=== PATIENT | female | born 1945 | race Caucasian/White ===

== ENCOUNTER 2024-04-11 13:27 | Inpatient (IN) | payer OTHER ==
[2024-04-28 10:05] VITALS: BMI 32.1
[2024-04-28] MEDS ORDERED: CARBOXYMETHYLCELLULOSE SODIUM 0.5% 15 ML OPTH PRN (11:02)
[2024-04-28] MEDS ORDERED: CALCIUM CARBONATE CHEW 500MG TAB PO PRN (11:07)
[2024-04-28] MEDS: INSULIN REGULAR (HUMAN) 100 UNIT/ML SQ SCH (13:50)
[2024-04-28] MEDS: CARBOXYMETHYLCELLULOSE SODIUM 0.5% 15 ML OPTH SCH (14:00)
--- NOTE | 2024-04-28 16:25 | RAD REPORT ---
EXAM: CT Head Brain Wo Cont HISTORY: hx of subdural hemmorhage COMPARISON: None TECHNIQUE: Multiple contiguous axial images were obtained for a CT of the brain without contrast. Sag ittal and coronal reformats were performed. One or more of the following dose reduction techniques were used: Automated exposure control, adjus tment of the mA and kV according to patient size, and iterative reconstruction. Unless otherwise specified, incidental findings do not require dedicated imaging follow-up. FINDINGS: Lobulated parenchymal hemorrhage in the left parietal subcortical and deep white matter, extending to wards the subependymal region, measuring 1.8 x 1.7 x 1.9 cm in greatest transverse, AP, and CC dimensions. Mild adjacent vasogenic edema pattern and mild mass effect upon the adjacent sulci. Symmetric radiodensities along the temporal horns of the lateral ventricles, favored to represent min eralization of elements of the choroid plexus rather than intraventricular hemorrhage. No evidence of hydrocephalus, posterior fossa hemorrhage, or extra-axial fluid collection. Mild brain atrophy with mild periventricular and deep white matter chronic microvascular ischemic ch anges present. The calvarium is intact. The visualized paranasal sinuses and mastoid air cells are essentially clear . IMPRESSION: Left parietal lobe parenchymal hematoma as above, given its peripheral location, could represent hemo rrhage within a cavernoma or other vascular malformation, or a lobar hemorrhage in the setting of chronic amyloid angiopathy. Mild adjacent edema mass effect. THIS REPORT CONTAINS FINDINGS THAT MAY BE CRITICAL TO PATIENT CARE. The findings were verbally commun icated via telephone to Jorge Pedro MD on 04/28/2024 4:09 PM.
[2024-04-28] MEDS: carvediloL 25 MG TAB PO SCH (17:21)
[2024-04-28] MEDS ORDERED: carvediloL 25 MG TAB PO SCH (18:00)
[2024-04-28] MEDS: MONTELUKAST 10 MG TAB PO SCH (19:47)
[2024-04-28] MEDS: POTASSIUM CL SA 10 MEQ TAB PO SCH (19:47)
[2024-04-28] MEDS: ATORVASTATIN 40 MG TAB PO SCH (19:47)
[2024-04-28] MEDS: APIXABAN 2.5 MG TABLET PO SCH (19:47)
[2024-04-28] MEDS: ACETAMINOPHEN 500 MG TAB PO PRN (19:49)
[2024-04-28] MEDS ORDERED: APIXABAN 5 MG TABLET PO SCH (20:00)
--- NOTE | 2024-04-28 20:26 | HP ---
Date of Admission: 04/28/2024 Chief Complaint: She has Velasco's palsy involving the right face, but there is also subdural hematoma. History Of Present Illness: Ms. Haines is an 78-year-old patient with atrial fibrillation, on Coumad in, coronary artery disease, along with aspirin. She presented to emergency department on 04/04/2024 with right facial droop, dizziness, headache that started approximately 5 days prior to admission. Her evaluation including head CT scan showed posterior fossa spontaneous hemorrhage. She denies any trauma. It involved the prepontine and premedullary cisterns. She was also in addition to the facia l droop, dysarthria, dysphagia, and some difficulty with liquid draining from the right corner of her mouth and loss of hearing in the right ear. 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 She had hypokale pedro, COPD, bilateral pleural effusions, pulmonary edema, hypertension, of course atrial fibrillation, and coronary artery disease. She was evaluated by the Neurosurgery Service and found to not require any surgical intervention. She was treated with Lasix and had kidney function monitored. She recei gloria steroids. She is unclear if she received acyclovir or valacyclovir. She was placed on telemetry and oxygen for CPAP at night. She had hospital course complicated by decreased hemoglobin and hemat ocrit, elevated blood sugars, creatinine, abnormal parameters including blood pressure. She was eval uated by the Physical, Occupational, and Speech Therapy Service and found to be functioning significa ntly below her baseline level of functioning and she was at that point, plan to transfer back to her home town, she was out of town and to a swing bed where she will be closer to family and expected to be there for about 2 weeks. She however did not thrive. She had multiple episodes of loss of balanc e when trying to ambulate with a single prong cane and requires significant continued help to reduce the risk of aspiration. Furthermore, she requires interval evaluation of the brain to evaluate if th ere is worsening or improvement of the subdural hematoma. She had difficulty also performing ordinar y activities of daily living. As a result of this worsening condition, she was determined to be an a ppropriate candidate for inpatient rehabilitation to have her comorbid conditions managed while she r eceives aggressive therapy to help her return towards her prior level of functioning. Inpatient reha bilitation is necessary as if she is not admitted, she would likely worsen and have rehospitalization in acute care. Past Medical History: As noted. Allergies: NO KNOWN DRUG ALLERGIES. Current Medications: Tylenol 500 mg every 6 hours as needed, Cordarone 200 mg daily, Eliquis 5 mg tw ice daily. She is still on Artificial Tears 1 drop in each eye 3 times daily, atorvastatin 40 mg at bedtime, Coreg 12.5 mg twice daily, Lasix 40 mg daily. She has Imdur 30 mg daily, Synthroid 0.075 mg daily, melatonin 3 mg at bedtime, Singulair 10 mg daily, K-Batool that is potassium 20 mEq twice daily, Aldactone 50 mg daily. Laboratory Studies: Blood glucose currently 96. White blood cell count 4.9, hemoglobin 10, hematocr it 32.7, platelets 209. Sodium 140, potassium 4.5, BUN 32, creatinine 1.86, calcium 11.0. Review of Systems: She reports mild myalgias and arthralgias. There is of course the right nasolabial fold drooping. S he has liquids draining in the right corner of the mouth. She says she has lost hearing in the right ear which is impacted. Otherwise, arms and legs are strong and symmetric. No significant asymmetry in terms of sensation as well. Current Level Of Functioning: Currently, she is at modified independence for eating. She does requi re observation and small sips and small amounts of food to attempt to reduce risk of aspiration. Dariel oming at supervision, bathing supervision, upper body dressing supervision, lower body dressing super vision. For toileting, wheelchair transfer, tub and shower transfer, supervision to moderate assista nce required. She ambulated 8 feet with moderate assistance. Physical Examination: Vital Signs: Blood pressure 119/56, pulse 60, respiratory rate 18, temperature 97.8, oxygen saturati on 94%. Weight 192 pounds. Height 5 feet 5 inches. BMI 32. General: Again, Ms. Haines is sitting in a chair beside bed. HEENT: She appears normocephalic. Neuro: She is just ambulating around the unit. She does have the decrease in the right nasolabial f old, no significant excursions on smiling and the forehead shows little movement in the right forehea d compared to the left and the right eye is unable to close due to the weakness of cranial nerve 7. Intact sensation. Otherwise in terms of cranial nerves, no other deficits except for decreased heari ng in the right ear. Her motor examination, she has good strength, symmetric, at least 4/5 proximall y and distally. Stocking-glove to light touch, temperature loss in the legs and arms. Reflexes depr essed, but symmetric. Rehab And Medical Assessment And Plan: Ms. Haines is an 78-year-old patient admitted to the [facility] rehabilitation unit with impairment category 01 stroke. Her impairment group code is 01.2, right b fritz involvement and left brain. Her etiologic diagnosis, prepontine and premedullary hemorrhage. No te, she is also experiencing decreased mobility, decreased physical functioning. She has hypothyroid ism, atrial fibrillation, recent BOWL TOPPER bleed of course, and insomnia. She had a head CT scan on arrival. The comparison was not available. The study identified a left pa rietal lobe parenchymal hematoma. Of note, it could represent a hemorrhage within the cavernoma or v ascular malformations or lobar hemorrhage in the setting of chronic amyloid angiopathy. Her lobulate d parenchymal hemorrhage in the left parietal subcortical and deep white matter area measured 1.8 x 1 .7 x 1.9 cm in greatest transverse anterior-posterior and craniocaudal dimensions. In terms of her continued plan as noted, she will have physical, occupational, and speech therapy. S he will continue with all medications as noted. Precautions adhered to for a fall as she has a recen t BOWL TOPPER bleed and therefore is at high risk of any worsening, especially on the Eliquis for DVT prophyl axis and fall precautions again adhered to at all times. Comorbidities That Are Impacting Rehabilitation: As noted, she has atrial fibrillation, is on Eliqui s and she has recent intraparenchymal bleed. The prior CT scan will be obtained to do a comparison t o see what has changed. She will also have interval scans done to help rule out any worsening hemorr kayden. Rehab Specific Plan: Ms. Haines will have physical, occupational, and speech therapy 3.5 hours, 5 of 7 days, to improve her ability to transfer from bed to chair, to toilet, to shower, to mobilize a wh eelchair, to ambulate with and without assistive device, is able to go up and down 10 steps with bila teral handrails, to perform all activities of daily living and to perform her cognitive functioning i n addition to working on her swallowing and to help with reduce the risk of drying of the right eyes, she will have Artificial Tears placed at least 3 to 4 times daily and may use a cover ove r the right eye, especially when asleep at night. Ms. Haines has a good understanding of the process of admission to inpatient rehabilitation unit and how she will benefit from physical, occupational, and speech therapy. She will have 24 hours a day, 7 days a week, skilled rehabilitation and nursing, daily physician evaluation and management, and soc ial services evaluation and management for discharge planning, home equipment, and to continue therap y. If need be, additional help will be sought from the Hospitalist Service. Barriers To Discharge: Currently, her big risk is more bleeds and she may end up requiring a higher level of care if there is worsening intercerebral parenchymal hemorrhage, so interval CT scan will be done to evaluate for that. Length Of Stay: About 10 days. Disposition: Expected to be home with family and to continue therapy potentially via outpatient ther apy depending how she is doing. Prognosis: Good despite complete. Code Status: Full code. Rehab Specific Goals: 1. Ms. Haines will be able to ambulate 250 feet with a rolling walker and mobilize a wheelchair 250 f eet and go up and down 10 steps with bilateral handrails. 2. She is expected independently to be able to do upper and lower body dressing, donning and doffing footwear. 3. She is independently expected to be able to perform all activities of daily living independently. 4. She can perform her cognitive functioning independently. The above goals were reviewed with Ms. Haines and she is in agreement. By signing this document, I acknowledge I personally performed a full physical examination on Ms. Darby cifuentes not later than 24 hours after her admission to the inpatient rehabilitation unit and determined t hat she is able to tolerate the above course of treatment at an intensive level for reasonable period of time. A detailed individualized plan of care for her will be completed by hospital day 4 based on the preadmission screen, history and phy sical, and therapy evaluations. FELICIA/MELY Voice ID: [id number]
[2024-04-28] MEDS: FLUTICASONE 50MCG NASAL SPRAY NAS SCH (21:08)
[2024-04-28 21:11] LABS: Sqamous Epithelial <5 /HPF (None Seen); Urine Bacteria <20 /HPF (<20); Urine Bilirubin NEGATIVE (Negative); Urine Blood Negative (Negative); Urine Clarity Turbid (Clear); Urine Color Light-Yellow (Yellow); Urine Crystals Unidentified Few /HPF (None Seen); Urine Culture Reflex Order NOT NEEDED; Urine Glucose 4+ (Negative); Urine Ketones NEGATIVE (Negative); Urine Micro Reflex YN NO BILL MICROSCOPIC; Urine Mucus Slight /HPF (None Seen); Urine Nitrite NEGATIVE (Negative); Urine Protein NEGATIVE (Negative); Urine RBC <5 /HPF (None Seen); Urine Urobilinogen Normal (Normal); Urine WBC Clump Rare /HPF (None Seen); Urine Yeast (Budding) Trace /HPF (None Seen)
[2024-04-29] MEDS: MELATONIN 3 MG TABLET PO PRN (02:12)
[2024-04-29 06:23] LABS: Absolute Eosinophils 0.1 K/uL (0-0.5); Absolute Lymphocytes (CBC) 0.6 K/uL (0.7-4.9); Absolute Monocytes 0.5 K/uL (0.1-1.3); Absolute Neutrophil 1.6 K/uL (1.8-8.0); Basophils % 0.4 % (0-1.3); Eosinophils % 4.3 % (0-4.4); Hematocrit 31.4 % (36.0-45.0); Hemoglobin 10.4 g/dL (12.0-15.0); Lymphocytes % 22.8 % (15.3-44.8); MCH 30.4 pg (27.0-35.0); MCV 91.9 fL (80-100); MPV 8.8 fL (7.6-11.3); Neutrophils % 55.5 % (41.7-73.7); Nucleated Red Blood Cells % 0.1 % (0-0); Platelets 121 thou/uL (152-406); RBC Red Blood Cell Count 3.42 M/uL (3.86-4.86); Red Cell Distribution Width 23.3 % (12.1-15.2)
[2024-04-29 06:30] LABS: Albumin 3.4 g/dL (3.4-5.0); Anion Gap 8.6 mEq/L (5.0-15.0); Magnesium 2.4 mg/dL (1.6-2.4); Potassium 4.6 mEq/L (3.5-5.1); Prealbumin 30.2 mg/dL (20-40)
[2024-04-29] MEDS: LEVOTHYROXINE SOD 0.075 MG TAB PO SCH (06:53)
[2024-04-29] MEDS: SPIRONOLACTONE 25 MG TABLET PO SCH ×2 (08:00→17:00)
[2024-04-29] MEDS ORDERED: FLUTICASONE 50MCG NASAL SPRAY NAS SCH (08:00)
[2024-04-29 08:23] LABS: Anisocytosis 2+; Blood Morphology Comment NOTED (NOT SEEN); Ovalocytes 2+; Platelet Estimate ADEQ; White Blood Cell Scan OK (OK)
[2024-04-29] MEDS: AMIODARONE HCL 200 MG TAB PO SCH (08:40)
[2024-04-29] MEDS: FUROSEMIDE 40 MG TABLET PO SCH (08:40)
[2024-04-29] MEDS: ISOSORBIDE MONO SR 30 MG TAB PO SCH (12:27)
--- NOTE | 2024-04-29 13:38 | P.RH.PN ---
Estimated Length of Stay: 8 Expected Discharge Date: 05/04/24 Discharge Disposition Plan: Home Family Support: Yes Vital Signs: Last Vital Signs Temp 97.4 F 04/29/24 06:45 Pulse 59 04/29/24 12:19 Resp 18 04/29/24 06:45 BP 121/59 L 04/29/24 12:19 Pulse Ox 95 04/29/24 06:45 Laboratory: Laboratory Last Values WBC 2.80 thou/uL (4.3-10.9) L 04/29/24 05:43 RBC 3.42 M/uL (3.86-4.86) L 04/29/24 05:43 Hgb 10.4 g/dL (12.0-15.0) L 04/29/24 05:43 Hct 31.4 % (36.0-45.0) L 04/29/24 05:43 MCV 91.9 fL (80-100) 04/29/24 05:43 MCH 30.4 pg (27.0-35.0) 04/29/24 05:43 MCHC 33.0 g/dL (32.0-36.0) 04/29/24 05:43 RDW 23.3 % (12.1-15.2) H 04/29/24 05:43 Plt Count 121 thou/uL (152-406) L 04/29/24 05:43 MPV 8.8 fL (7.6-11.3) 04/29/24 05:43 Neutrophils % 55.5 % (41.7-73.7) 04/29/24 05:43 Lymphocytes % 22.8 % (15.3-44.8) 04/29/24 05:43 Monocytes % 17.0 % (3.3-12.3) H 04/29/24 05:43 Eosinophils % 4.3 % (0-4.4) 04/29/24 05:43 Basophils % 0.4 % (0-1.3) 04/29/24 05:43 Absolute Neutrophils 1.6 K/uL (1.8-8.0) L 04/29/24 05:43 Absolute Lymphocytes 0.6 K/uL (0.7-4.9) L 04/29/24 05:43 Absolute Monocytes 0.5 K/uL (0.1-1.3) 04/29/24 05:43 Absolute Eosinophils 0.1 K/uL (0-0.5) 04/29/24 05:43 Absolute Basophils 0.0 K/uL (0-0.5) 04/29/24 05:43 Platelet Estimate Adeq 04/29/24 05:43 Anisocytosis 2+ 04/29/24 05:43 Ovalocytes 2+ 04/29/24 05:43 Morphology Comment Noted (NOT SEEN) 04/29/24 05:43 Sodium 140 mEq/L (136-145) 04/29/24 05:43 Potassium 4.6 mEq/L (3.5-5.1) 04/29/24 05:43 Chloride 107 mEq/L (98-107) 04/29/24 05:43 Carbon Dioxide 29 mEq/L (21-32) 04/29/24 05:43 Anion Gap 8.6 mEq/L (5.0-15.0) 04/29/24 05:43 BUN 35 mg/dL (7-18) H 04/29/24 05:43 Creatinine 1.93 mg/dL (0.55-1.02) H 04/29/24 05:43 Est GFR (CKD-EPI) 26 ml/min (=/>90) L 04/29/24 05:43 Glucose 101 mg/dL (74-106) 04/29/24 05:43 POC Glucose 96 mg/dL (65-120) 04/29/24 11:17 Hemoglobin A1c 5.4 % (4.2-6.3) 04/29/24 05:43 Calcium 11.0 mg/dL (8.5-10.1) H 04/29/24 05:43 Magnesium 2.4 mg/dL (1.6-2.4) 04/29/24 05:43 Albumin 3.4 g/dL (3.4-5.0) 04/29/24 05:43 Prealbumin 30.2 mg/dL (20-40) 04/29/24 05:43 Urine Color Light-yellow (Yellow) 04/28/24 20:55 Urine Clarity Turbid (Clear) H 04/28/24 20:55 Urine pH 5.0 (5.0-7.0) 04/28/24 20:55 Ur Specific Venus 1.010 (1.005-1.030) 04/28/24 20:55 Glucose (UA)(Auto) 4+ (Negative) H 04/28/24 20:55 Urine Ketones Negative (Negative) 04/28/24 20:55 Urine Blood Negative (Negative) 04/28/24 20:55 Urine Nitrite Negative (Negative) 04/28/24 20:55 Urine Bilirubin Negative (Negative) 04/28/24 20:55 Urine Urobilinogen Normal (Normal) 04/28/24 20:55 Ur Leukocyte Esterase 75 Jimmy/uL (Negative) H 04/28/24 20:55 Urine RBC <5 /HPF (None Seen) 04/28/24 20:55 Urine WBC 5-10 /HPF (<5) 04/28/24 20:55 Urine WBC Clumps Rare /HPF (None Seen) 04/28/24 20:55 Ur Squamous Epith Cells <5 /HPF (None Seen) 04/28/24 20:55 U Non-Squamous Epi Cells <5 /HPF (None Seen) 04/28/24 20:55 Unidentified Crystals Few /HPF (None Seen) 04/28/24 20:55 Urine Bacteria <20 /HPF (<20) 04/28/24 20:55 Hyaline Casts 0-5 /LPF (None Seen) 04/28/24 20:55 Urine Mucus Slight /HPF (None Seen) 04/28/24 20:55 Urine Yeast (Budding) Trace /HPF (None Seen) H 04/28/24 20:55 Urine Culture Reflexed Not needed 04/28/24 20:55 Urine Total Protein Negative (Negative) 04/28/24 20:55 Smear Scan Ok (OK) 04/29/24 05:43 Weight: 192 lb 12.8 oz Wound Present: No Physician Update: Labs reviewed and are stable. Head CT shows intraparenchymal bleed but the comparison prior head CT is not yet available. SLUMS 15 and BIMS 15. Right facial weakness is unchanged. CGA with bed mobility, transfers, 250' with rollator, 15 steps, may lose balance. CGA with ADLs. 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 Please see the Rehabilitation Signature page for all necessary signatures.
[2024-04-29] MEDS ORDERED: SPIRONOLACTONE 25 MG TABLET PO SCH (20:00)
[2024-05-01] MEDS: CRANBERRY FRUIT EXTRACT 425 MG CAPSULE PO SCH (07:56)
[2024-05-02] MEDS ORDERED: GUAIFENESIN 600 MG SA TAB PO SCH (13:30)
--- NOTE | 2024-05-02 22:10 | RAD REPORT ---
EXAM: CT brain without contrast HISTORY: Intracerebral bleed COMPARISON: April 28, 2024 TECHNIQUE: Multiple contiguous axial images were obtained and a CT of the brain without contrast.. Sagittal and coronal reconstruction performed. Automated exposure control, adjustment of the mA and/or kV according to patient size, and/or iterative reconstruction. Unless otherwise specified, incidental f indings do not require dedicated imaging follow-up FINDINGS: Mild increase in the size of the left parietal lobe probably bleed since the prior exam. The dense co mponent measures 2.3 cm. Previously it measured 1.8 cm.. The surrounding low density component measures 4.1 cm in total. Previously it measured 3.1 cm. No shift of midline structures. Ventricles are normal caliber No extra-axial fluid collection noted No significant hypodensity within the brain No fluid within the visualized sinuses or mastoids noted. IMPRESSION: Mild increase in the size of the left parietal lobe bleed since April 28, 2024. No significant mass effect however
--- NOTE | 2024-05-03 00:53 | PN ---
Date of Progress Note: 05/02/2024 Time Of Service: 1:20 p.m. Subjective: Ms. Haines is doing very well. She is ambulating multiple times around the unit, at [facility] about 7 times covering 250 feet with no significant difficulty. She still has the right facial pa lsy, weakness from the Velasco's palsy, and also subdural hematoma, but is doing excellent. Objective: No fevers, chills, nausea, vomiting, myalgias, arthralgias. Physical Examination: Vital Signs: Blood pressure 101/44, pulse 82, respiratory rate 17, temperature 97.6, oxygen saturati on 98%. Weight 192 pounds, height 5 feet 5 inches. Neuro: Ms. Haines again has significant right facial droop that is upper and lower face, difficulty closing the eyes. She is doing very well otherwise. In terms of the right side, very minimal weakne ss if any and incoordination very subtle. She ambulates very well with a rolling walker. Laboratory Studies: White blood cell count 2.8, hemoglobin 10.4, platelets 121, glucose ranged from 91 to 134. Urinalysis from the did show 75 esterase, trace budding yeast, 4+ glucose, and turbid clarity. X-ray/imaging: CT scan of the head done today and compared to one on 04/28/2024, that scan showed mi ld increase in size of the left parietal lobe bleed since April 28. However, there was no significant mass effect. It is noted that the mild increase in size of left parietal bleed was since the prior exam noted, currently measured 2.3, previously measured 1.8. There is surrounding low-density compon ent, measured 4.1 in total and previously had measured 3.1 cm. Note, she has been on Eliquis 2.5 mg twice daily, that will be discontinued. Medications: Tylenol 500 mg every 6 hours as needed, amiodarone 200 mg daily, Eliquis now discontinu ed was 2.5 mg twice daily. She has atorvastatin 40 mg daily, calcium 500 mg daily, carvedilol 12.5 m g daily, cranberry fruit extract 425 mg daily, Lasix 40 mg daily, isosorbide 30 mg daily, levothyroxi ne 0.075 mg daily, melatonin 3 mg at night, spironolactone 25 mg daily, Ventolin inhaler 1 puff twice daily. Progress Made With Physical, Occupational, And Speech Therapy: Today with physical therapy, she did ambulate 750 feet twice, another 250 feet, and then 1000 feet independently, ascend and descend 15 st eps with bilateral handrails all independently. Miv-gt-engaq transfers done independently, stand-to- pivot transfers done independently. Car transfers done independently. With speech, she did very wel l. She repeated 10 sets of repetitions and was accurate and no significant issues with her speech th erapy. She completed dynamic standing balance on exercises with 2-pound Thera ball and did very well . Assessment And Plan: Ms. Haines is an 78-year-old patient, admitted to the rehabilitation unit with subdural hematoma. The interval scan shows the bleeding has increased in size some and her Eliquis 2 .5 mg twice daily will be discontinued. At this point, she will likely require another interval scan to show if there is any decrease in the expansion of the bleed. She was originally on Eliquis 5 mg twice daily for fibrillation discontinued. In addition, she has atorvastatin for dyslipid emia, Synthroid for hypothyroidism, Coreg for heart rate control, Lasix for fluid management along wi th Cordarone for heart rate control. In terms of plan, continue with physical, occupational, and spe ech therapy, continue with comorbid condition medications, and again discontinue the Eliquis. FELICIA/MELY Voice ID: [id number] Report ID: [id number]
[2024-05-03 07:41] LABS: Albumin 3.3 g/dL (3.4-5.0); Anion Gap 8.5 mEq/L (5.0-15.0); Magnesium 2.5 mg/dL (1.6-2.4); Potassium 4.5 mEq/L (3.5-5.1); Prealbumin 26.8 mg/dL (20-40)
[2024-05-03 07:43] LABS: Absolute Eosinophils 0.2 K/uL (0-0.5); Absolute Lymphocytes (CBC) 0.7 K/uL (0.7-4.9); Absolute Monocytes 0.4 K/uL (0.1-1.3); Absolute Neutrophil 1.5 K/uL (1.8-8.0); Basophils % 1.2 % (0-1.3); Eosinophils % 6.2 % (0-4.4); Hematocrit 31.6 % (36.0-45.0); Hemoglobin 10.4 g/dL (12.0-15.0); MCH 30.5 pg (27.0-35.0); MCHC 32.8 g/dL (32.0-36.0); MCV 92.8 fL (80-100); MPV 8.8 fL (7.6-11.3); Monocytes % 15.1 % (3.3-12.3); Neutrophils % 53.5 % (41.7-73.7); Nucleated Red Blood Cells % 0.2 % (0-0); Platelets 126 thou/uL (152-406); Red Cell Distribution Width 22.1 % (12.1-15.2)
[2024-05-03 12:06] LABS: Anisocytosis 2+; Blood Morphology Comment NOTED (NOT SEEN); Ovalocytes 2+; Platelet Estimate DECR; White Blood Cell Scan OK (OK)
--- NOTE | 2024-05-03 23:19 | PN ---
Date of Progress Note: 05/03/2024 Time Of Service: 1:15 p.m. Subjective: Ms. Haines is very happy about her progress and is ready for discharge, to be in the [facility]. However, the repeat CT scan as noted did show an increase in size of her central nervous syste m bleed. Did show an increase from 1.8 to 2.3 and from 3.1 to 4.1 cm bleed which was seen in the lef t parietal lobe. Scan was compared between the 28 of April and the 01 of May. Repeat study will be done tomorrow morning that is the . Objective: She has no fevers, chills, nausea, vomiting, myalgias, arthralgias. No change in terms o f coordination, balance, sensation, vision, and speech. Physical Examination: Vital Signs: Blood pressure 101/46, pulse 60, respiratory rate 17, temperature 98.1, oxygen saturati on 98%. General: Again, Ms. Haines is sitting comfortably. Family inside the room. HEENT: She is normocephalic, atraumatic. Sclerae anicteric. Neuro: She has the right facial droop from the Velasco's palsy that is unchanged and no other significa nt findings in terms of her examination. Laboratory Studies: White blood cell count 2.7, hemoglobin 10.4, platelets are 126. Sodium 138, pot assium 4.5, chloride 107, carbon dioxide 27, BUN 41, creatinine 1.81, glucose ranged from 89 to 122, calcium 11.0, magnesium 2.5, albumin 3.3, prealbumin 26.8. Medications: Medications have been reviewed and are unchanged. Progress Made With Physical And Occupational Therapy: Today, she ambulated with a Rollator 1000 feet and 500 feet, all independently. Up and down 15 steps with bilateral handrails, all independently, and mobilized a wheelchair 275 feet independently. [id number]-uq-nzaqa transfers and gujzuv-je-adm transfer s all independently done. With occupational therapy, independent with bathing, upper and lower body dressing, donning and doffing footwear, all independent. With speech, she did maintain a BIMS score of 15 and a SLUMS score also maintained at 25. Assessment And Plan: Ms. Haines is an 78-year-old patient in rehabilitation unit with a Velasco's palsy and she has a subdural hematoma with slight increase in size while she was on Eliquis 2.5 mg twice d aily. When she came to the hospital, was decreased from 5 mg twice daily. She has been showing no c hange in clinical condition. She will have a repeat CT scan of her head tomorrow to evaluate any pot ential change in the size of the left parietal bleed. Otherwise, she will continue with physical, oc cupational, and speech therapy until her discharge. Continue with her comorbid condition medications until discharge and discharge is recommended. She will continue therapy at an outpatient facility c lose to home. FELICIA/MELY Voice ID: [id number] Report ID: [id number]
--- NOTE | 2024-05-04 08:56 | RAD REPORT ---
EXAM: CT brain without contrast HISTORY: [employer] hemorrhage follow up COMPARISON: 05/02/2024, 04/28/2024 TECHNIQUE: Multiple contiguous axial images were obtained and a CT of the brain without contrast. Sag ittal and coronal reformats were performed. One or more of the following dose reduction techniques were used: Automated exposure control, adjust ment of the mA and/or kV according to patient size, and/or iterative reconstruction. FINDINGS: Intracerebral hematoma left parietal region has slightly increased in size currently measuring 30 x 2 5 mm, previously 27 x 22 mm. Mild surrounding edema is present, unchanged. Mild brain atrophy. No midline shift. The calvarium is intact. The visualized paranasal sinuses and mastoid air cells are essentially clear . IMPRESSION: There has been slight size increase in the left parietal intracerebral hematoma since comparison stud y. No midline shift or new abnormality seen.
--- NOTE | 2024-05-04 19:40 | PN ---
Date of Progress Note: 05/04/2024 Time Of Service: 1 p.m. Subjective: Ms. Haines is actually all set and ready to go fully dressed and will be discharged. Ho sharaver, she did have a third head CT scan earlier today and that was compared to 2 other scans done on the and 1 on the . The scan from today showed increasing size of her left parietal lobe hem atoma. The study showed an increase in dimensions from actually 27 to 30 by 22 to 25 mm, the 27 incr eased to 30 mm and what was measuring 22 mm increased to 25 mm over 2 days. As a result of this metcalf ge or increase in the size of her left parietal hematoma, despite her not having any new clinical sym ptoms, her discharge was put on hold. The importance is to determine if this bleeding is expanding o r stabilizing. It is noted that from the to , the increase in size was by 10 mm and now it a ppears to be slowing down. She did have all anticoagulation discontinued. Eliquis and aspirin have been stopped. Again, she has no new clinical findings, although she did say she did not feel quite r ight yesterday. Some right-sided incoordination of the hands which is present. 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 Objective: No fevers, chills, nausea, vomiting. No myalgias, arthralgias. No headache. No new fin dings in terms of examination findings. Physical Examination: Vital Signs: Blood pressure 120/49, pulse 60, respiratory rate 16, temperature 97, oxygen saturation 92%. General: Again, Ms. Haines is fully dressed, ready to go home. Neuro: She does have the right nasolabial fold decrease and the forehead decrease from her Velasco's pa lsy. She does have some right-sided weakness and incoordination which are her baseline, at least 4/5 . She is ambulating very well. She did very well with her physical therapy today and again was all set to go home and no new deficits. Laboratory Studies: Her white blood cell count yesterday 2.7, hemoglobin 10.4, platelets are 126, an d blood sugars today ranged from 94 to 122, and again we discussed the CT scan of her head was alchao y mentioned. Medications: Medications again adjusted. There is no anticoagulation on board. No aspirin, no Eliq uis. She has SCDs at night. Continue Lipitor, Artificial Tears, amiodarone, Coreg, Lasix, we will c ontinue with Imdur, Synthroid, melatonin, Singulair, potassium replacement, and spironolactone. Progress Made With Physical And Occupational Therapy: Again today, because therapy was now set as a concurrent therapy for improving her clinical benefit as she is actually high functioning, doing very well, and therefore therapy was done again concurrent and done for clinical benefit. With speech, s he completed oral motor exercises 10 repetitions each for improved facial, lingual, and labial streng th. She demonstrated improved accuracy in her movements and recalled the teachings from the previous sessions. Regarding the rest of her therapy, with physical therapy, she is able to be independent o peyton a 1000 feet on multiple occasions with a Rollator, independent with mobility of a wheelchair 275 feet, independent up and down 15 steps with bilateral handrails. [id number] transfer all independe nt, doing excellent, and independent with activities of daily living and met all of her functional go als and the reason again that the patient is still hospitalized that she has an expanding hematoma th at requires careful monitoring before she goes home. It needs to be demonstrated to be stable, but y et is increasing at this point, so she will be held 2 days and have a repeat CT scan of the head on rid and if that is good, will be discharged again with some followup set up for Neurology with inte rval scan in place. Assessment: Ms. Haines is an 78-year-old patient in the rehabilitation unit with right Velasco's palsy. She has a bleed in the left parietal lobe and there is still some expansion of the bleed. She does have comorbid hypertension insomnia, hypothyroidism, dry eyes, dyslipidemia. Plan: 1. She will have again physical, occupational, and speech therapy continued until her discharge, but today, she did have concurrent therapy for clinical benefit. 2. She will continue with all comorbid condition medications. 3. CT scan of the head noncontrast will be done on Thursday. 4. No anticoagulation done. SCDs while in bed. FELICIA/MELY Voice ID: [id number] Report ID: [id number]
[2024-05-05 06:16] LABS: Absolute Lymphocytes (CBC) 0.8 K/uL (0.7-4.9); Absolute Monocytes 0.5 K/uL (0.1-1.3); Basophils % 0.5 % (0-1.3); Hemoglobin 10.7 g/dL (12.0-15.0)
[2024-05-05 06:28] LABS: Albumin 3.3 g/dL (3.4-5.0); Anion Gap 8.4 mEq/L (5.0-15.0); Magnesium 2.4 mg/dL (1.6-2.4); Potassium 4.4 mEq/L (3.5-5.1); Prealbumin 24.9 mg/dL (20-40)
[2024-05-05 06:38] LABS: Absolute Eosinophils 0.2 K/uL (0-0.5); Absolute Neutrophil 1.8 K/uL (1.8-8.0); Hematocrit 32.2 % (36.0-45.0); Lymphocytes % 23.5 % (15.3-44.8); MCH 30.2 pg (27.0-35.0); MCHC 33.2 g/dL (32.0-36.0); MPV 9.5 fL (7.6-11.3); Monocytes % 16.7 % (3.3-12.3); Neutrophils % 54.3 % (41.7-73.7); Nucleated Red Blood Cells % 0.4 % (0-0); Platelets 120 thou/uL (152-406); RBC Red Blood Cell Count 3.54 M/uL (3.86-4.86); Red Cell Distribution Width 22.1 % (12.1-15.2)
--- NOTE | 2024-05-05 08:02 | P.CNS ---
Date of Consult: 05/05/24 Chief Complaint: Painful toenails Allergies No Known Allergies Allergy (Unverified 04/28/24 09:52) Home Medications: Acetaminophen [Tylenol Extra Strength] 500 mg PO Q4HP PRN 04/28/24 Albuterol Sulfate [Ventolin Hfa] 1 inhaler IH BID PRN 04/28/24 Amiodarone HCl [Cordarone*] 200 mg PO DAILY 04/28/24 Atorvastatin Calcium [Lipitor] 40 mg PO DAILY 04/28/24 Calcium Carbonate [Tums Regular*] 500 mg PO DAILY PRN 04/28/24 Carboxymethylcellulose Sodium [Artificial Tears] 2 drops EACH EYE TID 04/28/24 Carvedilol [Coreg] 12.5 mg PO BID 04/28/24 Fluticasone Propion/Salmeterol [Advair 250-50 Diskus] 1 puff IH BID 04/28/24 Fluticasone [Flonase 50MCG Nasal [place]*] 1 spray DELIO DAILY 04/28/24 Furosemide [Lasix] 40 mg PO DAILY 04/28/24 Isosorbide Mononitrate [Isosorbide Mononitrate ER] 30 mg PO DAILY 04/28/24 Jardiance 10 Mg 10 mg PO DAILY 04/28/24 Levothyroxine [Synthroid*] 75 mcg PO [id number] 04/28/24 Melatonin [Melatonin*] 3 mg PO BEDTIME PRN 04/28/24 Montelukast Sodium [Singulair] 10 mg PO BEDTIME 04/28/24 Potassium Chloride [Klor-Con 10] 20 meq PO BID 04/28/24 Spironolactone [Aldactone] 50 mg PO DAILY 04/28/24 carvediloL [Carvedilol] 25 mg PO BID 04/28/24 - Past Medical/Surgical History Diabetic: No -: htn -: afib - Social History Alcohol use: No CD- Drugs: No Caffeine use: No Place of Residence: Home Review of Systems 10-point ROS is otherwise unremarkable Physical Examination Temp Pulse Resp BP Pulse Ox 97.5 F 60 16 124/60 94 05/05/24 07:54 05/05/24 07:54 05/05/24 07:54 05/05/24 07:54 05/05/24 07:54 General: Alert, In no apparent distress, Oriented x3 Cardiovascular: No edema, Abnormal pulses (0/4 dp and pt pulses bilateral) Capillary refill: <2 Seconds Musculoskeletal: No clubbing, No swelling, No contractures, No erythema, No tenderness, No warmth Integumentary: Other (Thickened hypertrophic toenails with subungual debris x 10) Neurological: Sensation intact Laboratory Data (last 24 hrs) 05/05/24 05/05/24 05:36 05:36 WBC 3.20 L Hgb 10.7 L Hct 32.2 L Plt Count 120 L Sodium 137 Potassium 4.4 BUN 41 H Creatinine 1.88 H Glucose 97 Magnesium 2.4 - Problems (1) Generalized atherosclerosis Current Visit: Yes Status: Acute (2) Tinea unguium Current Visit: Yes Status: Acute Conclusions/Impression: Debridement of nails at bedside
[2024-05-05 08:45] LABS: Anisocytosis 1+; Blood Morphology Comment NOTED (NOT SEEN); Ovalocytes 1+; Platelet Estimate DECR; White Blood Cell Scan OK (OK)
[2024-05-05] MEDS ORDERED: TRAZODONE 50 MG TABLET PO SCH (21:00)
--- NOTE | 2024-05-06 01:16 | PN ---
Date of Progress Note: 05/05/2024 Time Of Service: 1:15 p.m. Subjective: Ms. Haines is resting in the room in between therapy sessions. She denied any changes s uch as more right-sided numbness, weakness, or incoordination. No headaches. No change in vision. Objective: Again, no fevers, chills, nausea, vomiting, myalgias, arthralgias. Still has the right n asolabial fold decrease and decrease movement of the right upper face consistent with Velasco's palsy. In addition, where she has the bleed that is noted on last CT scan that still showed increase in size over from around the 28 April to last MRI done yesterday. She has another CT scan done in the [facility] and I believe the scan shows no increase in size and the bleed and she can be discharged home to [facility] outpatient with an additional CT scan. Physical Examination: Vital Signs: Blood pressure 120/57, pulse 60, respiratory rate 18, temperature 97.7, oxygen saturati on 92%. General: Ms. Haines is lying in bed. She is in no acute distress. She has right nasolabial fold de crease and some incoordination in the right upper and lower extremities. Laboratory Studies: White blood cell count is 3.2, hemoglobin 10.7, platelets 120. Sodium 137, pota ssium 4.4, carbon dioxide 107, BUN 41, creatinine 1.88, glucose ranged from 85 to 103, calcium slight ly elevated at 10.8, magnesium 2.4, albumin 3.3, prealbumin 24.9. X-ray/imaging: No new x-rays or imaging. Consultation: She was seen by Dr. Rg Lopez on the Podiatry Service and he did debridement of the toenails at the bedside. Progress Made With Physical, Occupational, And Speech Therapy: With physical therapy today, she ambu lated 500 feet twice, 125 feet, and then 1000 feet independently. Ascended and descended 15 steps wi th bilateral handrails independently x2 trials. With occupational therapy, independent with bathing, donning and doffing with her footwear and did [id number] with rolling walker , all with independence. With occupational therapy, she improved her BIMS score from 10-15 and doing very well. Assessment And Plan: Ms. Haines is an 78-year-old patient in rehabilitation unit with hemorrhagic st roke in the left brain affecting the right body. In addition to, right-sided Velasco's palsy. She has decreased mobility, decreased physical functioning, hypertension, dry eyes, dyslipidemia, hypothyroid ism, constipation. Plan: She will continue with physical, occupational, and speech therapy. We will a repeat CT scan o f the head in the morning with contrast. If she has a stable finding, she should be able to be disch arged tomorrow and she should follow up next week at Dr. Pedro's office. Within a week to 2 weeks we will have a repeat CT scan of her head. Also follow up with her physical chemist since she is now of f all anticoagulation and does have atrial fibrillation. Because of her bleed, anticoagulation has b een stopped. She did have aspirin along with Eliquis and all of those will be discontinued for now. She will follow up with Dr. Willis, her physical chemist, for further evaluation and changes in medicatio n as appropriate. FELICIA/MELY Voice ID: [id number] Report ID: [id number]
[2024-05-06 07:46] VITALS: TEMP 97.5
--- NOTE | 2024-05-06 08:35 | RAD REPORT ---
EXAM: CT brain without contrast HISTORY: rule out expanding hemorrhage COMPARISON: 05/04/2024, 05/02/2024 TECHNIQUE: Multiple contiguous axial images were obtained and a CT of the brain without contrast. Sag ittal and coronal reformats were performed. One or more of the following dose reduction techniques were used: Automated exposure control, adjust ment of the mA and/or kV according to patient size, and/or iterative reconstruction. FINDINGS: Left parietal lobe intracerebral hematoma shows no suspicious change in size since comparison study, measuring 3.0 x 2.5 cm with mild surrounding edema. No new areas of hemorrhage, hydrocephalus, midline shift or extra-axial collection. No additional areas of brain edema. The calvarium is intact. The visualized paranasal sinuses and mastoid air cells are essentially clear . IMPRESSION: No significant change is seen since 05/04/2024 study.
[2024-05-06 10:44] VITALS: BP 124/57
--- NOTE | 2024-05-06 16:50 | P.RH.PN ---
Estimated Length of Stay: 8 Expected Discharge Date: 05/06/24 Discharge Disposition Plan: Home Family Support: Yes Food Photographer Goal: Mobility, Transfers, Self Care Vital Signs: Last Vital Signs Temp 97.5 F 05/06/24 07:45 Pulse 60 05/06/24 10:43 Resp 17 05/06/24 07:45 BP 124/57 L 05/06/24 10:43 Pulse Ox 94 05/06/24 07:45 Laboratory: Laboratory Last Values WBC 3.20 thou/uL (4.3-10.9) L 05/05/24 05:36 RBC 3.54 M/uL (3.86-4.86) L 05/05/24 05:36 Hgb 10.7 g/dL (12.0-15.0) L 05/05/24 05:36 Hct 32.2 % (36.0-45.0) L 05/05/24 05:36 MCV 91.0 fL (80-100) 05/05/24 05:36 MCH 30.2 pg (27.0-35.0) 05/05/24 05:36 MCHC 33.2 g/dL (32.0-36.0) 05/05/24 05:36 RDW 22.1 % (12.1-15.2) H 05/05/24 05:36 Plt Count 120 thou/uL (152-406) L 05/05/24 05:36 MPV 9.5 fL (7.6-11.3) 05/05/24 05:36 Neutrophils % 54.3 % (41.7-73.7) 05/05/24 05:36 Lymphocytes % 23.5 % (15.3-44.8) 05/05/24 05:36 Monocytes % 16.7 % (3.3-12.3) H 05/05/24 05:36 Eosinophils % 5.0 % (0-4.4) H 05/05/24 05:36 Basophils % 0.5 % (0-1.3) 05/05/24 05:36 Absolute Neutrophils 1.8 K/uL (1.8-8.0) 05/05/24 05:36 Absolute Lymphocytes 0.8 K/uL (0.7-4.9) 05/05/24 05:36 Absolute Monocytes 0.5 K/uL (0.1-1.3) 05/05/24 05:36 Absolute Eosinophils 0.2 K/uL (0-0.5) 05/05/24 05:36 Absolute Basophils 0.0 K/uL (0-0.5) 05/05/24 05:36 Platelet Estimate Decr 05/05/24 05:36 Anisocytosis 1+ 05/05/24 05:36 Ovalocytes 1+ 05/05/24 05:36 Schistocytes Few 05/05/24 05:36 Morphology Comment Noted (NOT SEEN) 05/05/24 05:36 Sodium 137 mEq/L (136-145) 05/05/24 05:36 Potassium 4.4 mEq/L (3.5-5.1) 05/05/24 05:36 Chloride 107 mEq/L (98-107) 05/05/24 05:36 Carbon Dioxide 26 mEq/L (21-32) 05/05/24 05:36 Anion Gap 8.4 mEq/L (5.0-15.0) 05/05/24 05:36 BUN 41 mg/dL (7-18) H 05/05/24 05:36 Creatinine 1.88 mg/dL (0.55-1.02) H 05/05/24 05:36 Est GFR (CKD-EPI) 27 ml/min (=/>90) L 05/05/24 05:36 Glucose 97 mg/dL (74-106) 05/05/24 05:36 POC Glucose 85 mg/dL (65-120) 05/05/24 07:11 Hemoglobin A1c 5.4 % (4.2-6.3) 04/29/24 05:43 Calcium 10.8 mg/dL (8.5-10.1) H 05/05/24 05:36 Magnesium 2.4 mg/dL (1.6-2.4) 05/05/24 05:36 Albumin 3.3 g/dL (3.4-5.0) L 05/05/24 05:36 Prealbumin 24.9 mg/dL (20-40) 05/05/24 05:36 Urine Color Light-yellow (Yellow) 04/28/24 20:55 Urine Clarity Turbid (Clear) H 04/28/24 20:55 Urine pH 5.0 (5.0-7.0) 04/28/24 20:55 Ur Specific [place] 1.010 (1.005-1.030) 04/28/24 20:55 Glucose (UA)(Auto) 4+ (Negative) H 04/28/24 20:55 Urine Ketones Negative (Negative) 04/28/24 20:55 Urine Blood Negative (Negative) 04/28/24 20:55 Urine Nitrite Negative (Negative) 04/28/24 20:55 Urine Bilirubin Negative (Negative) 04/28/24 20:55 Urine Urobilinogen Normal (Normal) 04/28/24 20:55 Ur Leukocyte Esterase 75 Jimmy/uL (Negative) H 04/28/24 20:55 Urine RBC <5 /HPF (None Seen) 04/28/24 20:55 Urine WBC 5-10 /HPF (<5) 04/28/24 20:55 Urine WBC Clumps Rare /HPF (None Seen) 04/28/24 20:55 Ur Squamous Epith Cells <5 /HPF (None Seen) 04/28/24 20:55 U Non-Squamous Epi Cells <5 /HPF (None Seen) 04/28/24 20:55 Unidentified Crystals Few /HPF (None Seen) 04/28/24 20:55 Urine Bacteria <20 /HPF (<20) 04/28/24 20:55 Hyaline Casts 0-5 /LPF (None Seen) 04/28/24 20:55 Urine Mucus Slight /HPF (None Seen) 04/28/24 20:55 Urine Yeast (Budding) Trace /HPF (None Seen) H 04/28/24 20:55 Urine Culture Reflexed Not needed 04/28/24 20:55 Urine Total Protein Negative (Negative) 04/28/24 20:55 Smear Scan Ok (OK) 05/05/24 05:36 Weight: 192 lb 12.8 oz Wound Present: No Closed Surgical Incision Present: No Negative Pressure Wound Therapy Present: No Physician Update: Her labs have been reviewed and are stable. Her repeat head CT scan without contrast shows a stable hematoma in the left right parietal lobe. She scored 15 on the BIMS study and also on the SLUMS study. Her memory loss has improved. She met all physical and occupational therapy goals. She covered 1000 feet independently with a rolling walker. She was up and down 15 steps twice independently. She completed activities of daily living with independence. She will be discharged home today and continue therapy via outpatient service. Summary: Patient's care plan and assisted goals have been reviewed and revised as necessary. Please see the Rehabilitation Signature page for all necessary signatures.
== END 2024-05-06 16:40 | disposition home or self-care (01) | DRG 57 ==
LOC: 5TH 04-28 09:45
PROVIDERS: ADMIT Psychiatry & Neurology Neurology with Special Qualifications in Child Neurology; ATTEND Psychiatry & Neurology Neurology with Special Qualifications in Child Neurology
PROC: 0HBRXZZ Excision of Toe Nail, External Approach (ICD-10-PCS; principal; 2024-05-05)
PROC: 0HBRXZZ Excision of Toe Nail, External Approach (ICD-10-PCS; 2024-05-05)
PROC: 0HBRXZZ Excision of Toe Nail, External Approach (ICD-10-PCS; 2024-05-05)
PROC: 0HBRXZZ Excision of Toe Nail, External Approach (ICD-10-PCS; 2024-05-05)
PROC: 0HBRXZZ Excision of Toe Nail, External Approach (ICD-10-PCS; 2024-05-05)
PROC: 0HBRXZZ Excision of Toe Nail, External Approach (ICD-10-PCS; 2024-05-05)
PROC: 0HBRXZZ Excision of Toe Nail, External Approach (ICD-10-PCS; 2024-05-05)
PROC: 0HBRXZZ Excision of Toe Nail, External Approach (ICD-10-PCS; 2024-05-05)
PROC: 0HBRXZZ Excision of Toe Nail, External Approach (ICD-10-PCS; 2024-05-05)
PROC: 0HBRXZZ Excision of Toe Nail, External Approach (ICD-10-PCS; 2024-05-05)
DX: I69.151 Hemiplegia and hemiparesis following nontraumatic intracerebral hemorrhage affecting right dominant side (principal); I69.122 Dysarthria following nontraumatic intracerebral hemorrhage; I69.191 Dysphagia following nontraumatic intracerebral hemorrhage; I69.192 Facial weakness following nontraumatic intracerebral hemorrhage; B35.1 Tinea unguium; K59.00 Constipation, unspecified; E87.6 Hypokalemia; E03.9 Hypothyroidism, unspecified; I48.91 Unspecified atrial fibrillation; I25.10 Atherosclerotic heart disease of native coronary artery without angina pectoris; J44.9 Chronic obstructive pulmonary disease, unspecified; I10 Essential (primary) hypertension; E78.5 Hyperlipidemia, unspecified; I70.91 Generalized atherosclerosis; G47.00 Insomnia, unspecified
CPT/HCPCS: 36415; 70450; 80048; 81001; 82040; 82947; 83036; 83735; 84134; 85025; 87077; 87086; 87088; 87186; 92507; 92523; 92526; 97110; 97112; 97116; 97129; 97162; 97165; 97530; 97542